=== PATIENT | male | born 1965 | race Caucasian/White ===

== ENCOUNTER 2020-02-21 00:57 | Outpatient (CLI) | payer OTHER, SELFPAY ==
[2020-02-21 19:00] LABS: SARS-CoV-2 RNA PCR Negative
== END 2020-02-21 00:58 | disposition home or self-care (01) ==
LOC: ANHCOVIDDT 00:57
PROVIDERS: PCP Family Medicine; Visit Provider Internal Medicine Gastroenterology
DX: Z01.812 Encounter for preprocedural laboratory examination (principal); Z11.59 Encounter for screening for other viral diseases
CPT/HCPCS: 87635; C9803; U0003

== ENCOUNTER 2020-02-23 00:55 | Day surgery (SDC) | payer OTHER, SELFPAY ==
[2020-02-16 11:45] VITALS: BMI 32.2
[2020-02-23 11:19] VITALS: BP 164/104; PULSE 78; RESP 16; TEMP 36.7; O2SAT 97; BMI 33.0
[2020-02-23] MEDS: LACTATED RINGERS 1,000 ML 150 ML IV CONT (11:23)
--- NOTE | 2020-02-23 11:39 | WPDANESEPPF ---
Anes - Initial Pre Proc Eval Procedure: Operation Date: 02/23/20 12:15 Proposed Procedures p Screening Colonoscopy - Soren Drummond MD Date/Time: 02/23/20 11:39 Surgeon: Soren Drummond MD Pre Op Diagnosis: Neoplasm Screening Patient Data Age: 55 Gender: M Height: 5 ft 10 in Weight: 104.3 kg Last Vital Signs Temp 36.7 C 02/23/20 11:19 Pulse 78 02/23/20 11:19 Resp 16 02/23/20 11:19 BP 164/104 H 02/23/20 11:19 Pulse Ox 97 02/23/20 11:19 Allergies Allergy/AdvReac Type Severity Reaction Status Date / Time No Known Allergies Allergy Mild Verified 02/23/20 11:08 Home Medications Medication Instructions Recorded Confirmed Type bupropion HCl 150 mg 24 hr tablet, 150 mg PO QAM #90 tablet 07/20/19 02/16/20 Rx extended release diclofenac sodium 75 mg 75 mg PO BID #180 tablet 08/07/19 02/16/20 Rx tablet,delayed release fluticasone propionate 50 2 spray NASAL DAILY #19.8 ml 01/10/20 02/16/20 Rx mcg/actuation nasal spray,suspension albuterol sulfate 90 mcg/actuation 2 puff INHALATION Q4H 90 Days 02/12/20 02/16/20 Rx aerosol inhaler #25.5 gm escitalopram oxalate 5 mg tablet 5 mg PO DAILY #90 tablet 02/14/20 02/16/20 Rx carbamazepine 200 mg PO Q12H PRN 02/16/20 02/16/20 History Patient hx anesthesia problems: none Family hx anesthesia problems: none PMFSH Family History Family History Mother Patient's mother is , Onset Age: 62 Father Family history of elevated blood lipids, Onset Age: 68 Family history of cardiovascular disease, Onset Age: 68 Cerebrovascular accident, Onset Age: 68 Family history of coronary artery disease, Onset Age: 68 Family history of congestive heart failure, Onset Age: 68 Grandparent Acute myocardial infarction, Onset Age: 40 Social History Social History Smoking status: Current every day smoker Alcohol intake: current Anes - Eval Final PreProcedure Day of Procedure 02/23/20 11:39 Patient weight: obese Heart: regular rate and rhythm Lungs: clear to auscultation Airway: Mallampati scale class II Neurological: alert and oriented Last oral intake: >/= 8 hours ASA classification: III Emergent: no Anesthetic plan: proceed Anesthesia type and monitoring: general GIVS and standard monitoring Informed Consent: The patient's anesthetic plan and its attendant risks and benefits were discussed with the patient/family/POA. Questions were solicited and answers provided to the satisfaction of the patient/family/POA.
--- NOTE | 2020-02-23 12:20 | PM.HPGS ---
History of Present Illness History of Present Illness Consent: Risks, benefits, and alternatives have been discussed and questions answered. Patient agrees to proceed with procedure. Chief complaint: Neoplasm Screening Narrative: Stanley Nicholson is a 55 year old male here for first screening colonoscopy Review of Systems Constitutional: Constitutional: Denies headache(s) and Denies weakness Eyes: Eyes: Denies blurry vision ENT: Reports Normal hearing present, Denies headache(s) and Denies neck pain Cardiovascular: Cardiovascular: Denies chest pain and Denies dyspnea Respiratory: Respiratory: Denies dyspnea Gastrointestinal: Gastrointestinal: Reports no additional gastrointestinal complaints Genitourinary: Genitourinary: Denies dysuria Musculoskeletal: Musculoskeletal: Denies neck pain Integumentary/Breasts: Skin/Breast: Denies dry skin Neurologic: Reports Normal hearing present, Denies headache(s) and Denies weakness Psychiatric: Psychiatric: Denies anxiety Endocrine: Endocrine: Denies change in body appearance Hematologic/Lymphatic: Hematologic/Lymphatic: Denies easy bleeding Allergic/Immunologic: Allergic/Immunologic: Denies urticaria PMFSH Family History Family History Mother Patient's mother is , Onset Age: 62 Father Family history of elevated blood lipids, Onset Age: 68 Family history of cardiovascular disease, Onset Age: 68 Cerebrovascular accident, Onset Age: 68 Family history of coronary artery disease, Onset Age: 68 Family history of congestive heart failure, Onset Age: 68 Grandparent Acute myocardial infarction, Onset Age: 40 Social History Social History Smoking status: Current every day smoker Alcohol intake: current Meds Home Medications and Allergies Home Medications Medication Instructions Recorded Confirmed Type bupropion HCl 150 mg 24 hr tablet, 150 mg PO QAM #90 tablet 07/20/19 02/16/20 Rx extended release diclofenac sodium 75 mg 75 mg PO BID #180 tablet 08/07/19 02/16/20 Rx tablet,delayed release fluticasone propionate 50 2 spray NASAL DAILY #19.8 ml 01/10/20 02/16/20 Rx mcg/actuation nasal spray,suspension albuterol sulfate 90 mcg/actuation 2 puff INHALATION Q4H 90 Days 02/12/20 02/16/20 Rx aerosol inhaler #25.5 gm escitalopram oxalate 5 mg tablet 5 mg PO DAILY #90 tablet 02/14/20 02/16/20 Rx carbamazepine 200 mg PO Q12H PRN 02/16/20 02/16/20 History Allergies Allergy/AdvReac Type Severity Reaction Status Date / Time No Known Allergies Allergy Mild Verified 02/23/20 11:08 Vital Signs Vital Signs - 24 hr 02/23/20 11:19 Temperature 98.1 F Pulse Rate 78 Respiratory Rate 16 Blood Pressure 164/104 H Pulse Oximetry 97 Exam Const: General: comfortable and no acute distress HENMT: General nose exam: Normal nares present Eyes: General: appearance normal, both eyes and all related structures Neck: Neck: no JVD Resp: Auscultation: clear to auscultation bilaterally Cardio: Rate: regular rate Rhythm: regular rhythm GI: Inspection: non-distended GI Palp: Yes Soft to palpation Skin: General skin exam: normal color Neuro: General: gait normal Speech: normal speech Extrem: General: normal to inspection Psych: Mental Status: mental status grossly normal Assessment and Plan Assessment and plan (1) Colon cancer screening: Code(s): Z12.11 - Encounter for screening for malignant neoplasm of colon Status: Acute Assessment and Plan: will proceed with colonoscopy (2) Anxiety disorder, unspecified: Code(s): F41.9 - Anxiety disorder, unspecified Status: Acute (3) Essential (primary) hypertension: Code(s): I10 - Essential (primary) hypertension Status: Acute
[2020-02-23 12:43] VITALS: BP 122/78; PULSE 76; RESP 16; O2SAT 94
[2020-02-23 12:53] VITALS: BP 119/78; PULSE 72; RESP 18; O2SAT 94
[2020-02-23 13:03] VITALS: BP 116/77; PULSE 64; RESP 18; O2SAT 95
== END 2020-02-23 13:14 | disposition home or self-care (01) ==
PROVIDERS: PCP Family Medicine; Visit Provider Internal Medicine Gastroenterology
PROC: 0DJD8ZZ Inspection of Lower Intestinal Tract, Via Natural or Artificial Opening Endoscopic (ICD-10-PCS; CPT 45378; principal; 2020-02-23 12:15)
DX: Z12.11 Encounter for screening for malignant neoplasm of colon (principal); K63.5 Polyp of colon; K57.30 Diverticulosis of large intestine without perforation or abscess without bleeding; K64.8 Other hemorrhoids; F17.200 Nicotine dependence, unspecified, uncomplicated; F41.9 Anxiety disorder, unspecified; I10 Essential (primary) hypertension; E66.9 Obesity, unspecified; Z68.33 Body mass index [BMI] 33.0-33.9, adult
CPT/HCPCS: 45380; 88305; J2001; J2704; J7120

== ENCOUNTER → 2021-05-02 04:42 | Outpatient (CLI) | payer OTHER, SELFPAY ==
[2021-05-02 18:26] LABS: SARS-CoV-2 RNA PCR Negative
== END ==
PROVIDERS: PCP Family Medicine; Visit Provider Physician Assistant
DX: R05 Cough (principal); R50.9 Fever, unspecified; Z20.822 Contact with and (suspected) exposure to COVID-19
CPT/HCPCS: C9803; U0003; U0005

== ENCOUNTER → 2021-05-07 12:54 | Outpatient (CLI) | payer OTHER, SELFPAY ==
--- NOTE | ~2021-05-07 | XR_ITS ---
XR cervical spine 4-5V DATE: 05/07/2021 13:28 INDICATION: Cervical radiculopathy TECHNIQUE: Standing AP, open-mouth, odontoid, lateral and swimmer views COMPARISON: None FINDINGS: C1 and C2 are normally aligned and the odontoid process is intact. There is straightening of the cervical spine. There is 2 mm anterolisthesis at C4-5. No fracture or dislocation or locked facet is evident. No prev ertebral soft tissue swelling. There is mild to moderate degenerative disc disease at C3-4 and C4-5. There is severe degenerative disc disease at C5-6 and C6-7. There is uncovertebral joint spurring at C5-6 and C6-7, more prominent on the right. IMPRESSION: Straightening Multilevel degenerative disc disease, most pronounced at C5-6 and C6-7 2 mm anterolisthesis at C4-5 Uncovertebral joint spurring at C5-6 and C6-7 Reviewed, dictated and finalized at location B.
== END ==
PROVIDERS: PCP Family Medicine; Visit Provider Physician Assistant Medical
DX: M54.12 Radiculopathy, cervical region (principal); M50.322 Other cervical disc degeneration at C5-C6 level; M50.323 Other cervical disc degeneration at C6-C7 level
CPT/HCPCS: 72050

== ENCOUNTER → 2021-06-06 11:00 | Outpatient (CLI) | payer OTHER, SELFPAY ==
--- NOTE | ~2021-06-06 | MR_ITS ---
EXAMINATION: MR cervical spine wo con DATE: 06/06/2021 11:45 INDICATION: Cervical radiculopathy. TECHNIQUE: Magnetic resonance imaging (MRI) of the cervical spine was performed without intravenous c ontrast. Sequences included sagittal T2-weighted FSE, sagittal STIR FSE, sagittal T1-weighted FSE, ax ial MERGE, and axial T2-weighted FSE. COMPARISON: Cervical spine radiographs 05/07/2021 FINDINGS: There is 2 mm retrolisthesis of C5 and C6 and C6 on C7. There is kyphosis of cervical spine . Vertebral body heights are normal. There is mildly decreased disc height at C4-C5, moderately decre ased disc height at C5-C6, and severely decreased disc height at C6-C7. The spinal cord signal intens ity is normal. The following disc levels are specifically discussed: C2-C3: The disc does not extend beyond the endplate margin. There is no uncovertebral joint osteoarth ritis. There is severe bilateral facet joint osteoarthritis. There is mild bilateral neural foraminal stenosis. There is no central canal stenosis. C3-C4: The disc is bulging. There is moderate bilateral uncovertebral joint osteoarthritis. There is severe bilateral facet joint osteoarthritis. There is moderate right and severe left neural foraminal stenosis. There is mild central canal stenosis. C4-C5: The disc is bulging. There is moderate right and mild left uncovertebral joint osteoarthritis. There is severe right and moderate left facet joint osteoarthritis. There is severe right neural for aminal stenosis. There is mild central canal stenosis with ventral indentation of the spinal cord. C5-C6: The disc is bulging. There is severe bilateral uncovertebral joint osteoarthritis. There is mo derate bilateral facet joint osteoarthritis. There is severe bilateral neural foraminal stenosis. The re is mild central canal stenosis with ventral indentation of the spinal cord. C6-C7: The disc is bulging. There is severe bilateral uncovertebral joint osteoarthritis. There is mi ld bilateral facet joint osteoarthritis. There is moderate right and mild left neural foraminal steno sis. There is mild central canal stenosis. C7-T1: The disc does not extend beyond the endplate margin. There is no uncovertebral joint osteoarth ritis. There is severe bilateral facet joint osteoarthritis. There is mild bilateral neural foraminal stenosis. There is no central canal stenosis. IMPRESSION: 1. Severe cervical spondylosis. Reviewed, dictated and finalized at location A.
== END ==
PROVIDERS: PCP Family Medicine; Visit Provider Nurse Practitioner Adult Health
DX: M47.22 Other spondylosis with radiculopathy, cervical region (principal)
CPT/HCPCS: 72141

== ENCOUNTER 2023-02-10 09:52 | Outpatient (CLI) | payer BC, SELFPAY ==
[2023-02-10 12:54] LABS: Kit Draw Collected
== END 2023-02-10 09:53 | disposition home or self-care (01) ==
LOC: ANHGOSHLAB 09:54
PROVIDERS: PCP Family Medicine; Visit Provider Nurse Practitioner Family
DX: E29.1 Testicular hypofunction (principal); E66.9 Obesity, unspecified; I10 Essential (primary) hypertension; R53.83 Other fatigue; Z12.5 Encounter for screening for malignant neoplasm of prostate
CPT/HCPCS: 36415

== ENCOUNTER → 2023-02-10 10:29 | Outpatient (CLI) | payer BC, SELFPAY ==
--- NOTE | ~2023-02-10 | XR_ITS ---
EXAMINATION: XR hip BI 2V w AP pelvis DATE: 02/10/2023 10:42 INDICATION: Bilateral hip pain. TECHNIQUE: An anteroposterior view of the pelvis and 2 views of each hip were obtained. COMPARISON: None. FINDINGS: Bone alignment is normal. No fracture. There is mild osteoarthritis of the hips. There is m oderate lumbar spondylosis. IMPRESSION: 1. Mild osteoarthritis of the hips. Reviewed, dictated and finalized at location A.
== END ==
PROVIDERS: PCP Family Medicine; Visit Provider Nurse Practitioner Family
DX: M16.0 Bilateral primary osteoarthritis of hip (principal)
CPT/HCPCS: 73521

== ENCOUNTER 2024-04-25 08:47 | Outpatient (CLI) | payer OTHER, SELFPAY ==
[2024-04-25 13:56] LABS: Basophils Absolute Auto 0.1 K/mm3 (0.0-0.1); Basophils Percent Auto 0.8 % (0.2-1.2); Eosinophils Absolute Auto 0.2 K/mm3 (0-0.3); Eosinophils Percent Auto 2.9 % (0-4.4); Hematocrit 47.9 % (42.0-52.0); Hemoglobin 15.7 g/dL (14.0-18.0); Immature Granulocyte Absolute 0.02 K/mm3 (0.00-0.031); Immature Granulocyte Percent A 0.3 % (0-0.5); Lymphocytes Absolute Auto 2.04 K/mm3 (0.9-3.2); Lymphocytes Percent Auto 34.4 % (18.3-44.2); Mean Corpuscular HGB Conc 32.8 g/dl (32-36); Mean Corpuscular Hemoglobin 30.3 pg (26-34); Mean Corpuscular Volume 92.5 fl (80-100); Mean Platelet Volume 10.1 fl (7.4-10.4); Monocytes Absolute Auto 0.6 K/mm3 (0.1-0.6); Monocytes Percent Auto 9.9 % (2.6-8.5); Neutrophils Absolute Auto 3.1 K/mm3 (1.3-6.7); Neutrophils Percent Auto 51.7 % (45.5-73.1); Platelet Count Result 326 k/mm3 (150-375); Red Blood Count 5.18 M/mm3 (4.6-6.20); Red Cell Distribution Width 13.2 % (11.5-14.5); White Blood Count 5.9 K/mm3 (4.5-10.0)
[2024-04-25 14:27] LABS: Alanine Aminotransferase 26 U/L (6-50); Albumin Level 4.5 g/dL (3.5-5.1); Alkaline Phosphatase 67 U/L (38-126); Anion Gap 9 mmol/L (4-12); Aspartate Amino Transferase 62 U/L (17-59); Bilirubin,Total 0.5 mg/dL (0.2-1.3); Blood Urea Nitrogen 14 mg/dL (9-20); Calcium 9.1 mg/dL (8.4-10.2); Carbon Dioxide 31 mmol/L (22-30); Chloride 98 mmol/L (98-107); Cholesterol 216 mg/dL (0-200); Estimated Glomerular Filt Rate > 60; Glucose 77 mg/dL (65-110); HDL Direct 44 mg/dL; Potassium 4.1 mmol/L (3.4-5.0); Sodium 138 mmol/L (137-145); Triglycerides 168 mg/dL (<150)
[2024-04-25 14:46] LABS: LDL Cholesterol Direct 127 mg/dL
[2024-04-25 14:52] LABS: Prostate Specific Antigen 0.7 ng/mL (< OR = 4.0)
[2024-04-25 15:31] LABS: Iron 103 ug/dL (49-181)
[2024-04-25 15:40] LABS: Percent Iron Saturation 33 % (20-50)
[2024-04-28 03:29] LABS: Testosterone Total 375 ng/dL (250-1100)
== END 2024-04-25 08:48 | disposition home or self-care (01) ==
LOC: ANHGOSHLAB 08:48
PROVIDERS: PCP Family Medicine; Visit Provider Nurse Practitioner Family
DX: E05.90 Thyrotoxicosis, unspecified without thyrotoxic crisis or storm (principal); E29.1 Testicular hypofunction; I10 Essential (primary) hypertension; R53.83 Other fatigue; Z12.5 Encounter for screening for malignant neoplasm of prostate; Z51.81 Encounter for therapeutic drug level monitoring; Z79.890 Hormone replacement therapy
CPT/HCPCS: 36415; 80053; 80061; 82728; 83540; 83550; 84153; 84403; 84443; 85025; G0103

== ENCOUNTER 2024-05-16 08:04 | Outpatient (CLI) | payer OTHER, SELFPAY ==
--- NOTE | ~2024-05-16 | NM_ITS ---
EXAMINATION: NM stress w perf spect multi DATE: 05/16/2024 09:47 INDICATION: Chest pain. TECHNIQUE: Rest images were obtained following intravenous administration of 10.1 mCi Tc99m tetrofosm in (Myoview). The patient performed an exercise activity. At peak exercise, 31.2 mCi Tc99m tetrofosmi n (Myoview) was administered intravenously, and stress images were obtained. Data was reconstructed i nto short axis and horizontal and vertical long axis SPECT images. Gated SPECT images were also obtai jes. COMPARISON: None. FINDINGS: There is no definite reversible or fixed perfusion abnormality to suggest ischemia or infar ction. There is no segmental wall motion abnormality. Left ventricular ejection fraction measures 6 3%. IMPRESSION: 1. No definite ischemia or infarct. 2. Normal left ventricular ejection fraction measuring 63%. Reviewed, dictated and finalized at location A.
--- NOTE | 2024-05-16 08:13 | EST_ITS ---
Patient Info Name: Stanley Nicholson Age: 59 years : 1965 Gender: Male Ht: 69 in Wt: 210 lbs BSA: 2.18 m2 HR: 64 bpm BP: 136 / 87 mmHg Exam Date: 05/16/2024 8:53 AM Exam Location: [facility] Patient Status: Outpatient Admit Date: 05/16/2024 Staff Ordering Physician: Loli Blunt Attending Provider: Loli Blunt Exercise Technologist: Sammie Badillo CT Exercise Physician: Stephen iRtchie DO Exam Type: CA stress test treadmill w NM Study Info A nuclear stress test was performed. A nuclear stress test was performed. Summary 1. 1. Negative Zach exercise stress test for ischemic ST changes by ECG criteria. 2. 2. Good functional capacity, achieving 10 METs of workload. 3. 3. Appropriate HR response to exercise. 4. 4. Appropriate HR recovery at 1 minute post exercise. 5. 5. Nuclear scan to follow and will be reported separately. Please correlate with it. 6. 6. Patient informed of the above results. Protocol: Zach Stress ECG Details Stage: REST Duration (min): 6 min : 39 sec Speed (mph): 0.0 Grade (%): 0 HR (bpm): 79 SBP (mmHg): 136 DBP (mmHg): 87 METS: --- Stage: REST Duration (min): 7 min : 22 sec Speed (mph): 0.0 Grade (%): 0 HR (bpm): 72 SBP (mmHg): 136 DBP (mmHg): 87 METS: --- Stage: STAGE 1 Duration (min): 1 min : 0 sec Speed (mph): 1.7 Grade (%): 10 HR (bpm): 95 SBP (mmHg): 136 DBP (mmHg): 87 METS: --- Stage: STAGE 1 Duration (min): 2 min : 0 sec Speed (mph): 1.7 Grade (%): 10 HR (bpm): 104 SBP (mmHg): 136 DBP (mmHg): 87 METS: --- Stage: STAGE 1 Duration (min): 3 min : 0 sec Speed (mph): 1.7 Grade (%): 10 HR (bpm): 107 SBP (mmHg): 159 DBP (mmHg): 80 METS: --- Stage: STAGE 2 Duration (min): 1 min : 0 sec Speed (mph): 2.5 Grade (%): 12 HR (bpm): 114 SBP (mmHg): 159 DBP (mmHg): 80 METS: --- Stage: STAGE 2 Duration (min): 2 min : 0 sec Speed (mph): 2.5 Grade (%): 12 HR (bpm): 125 SBP (mmHg): 149 DBP (mmHg): 77 METS: --- Stage: STAGE 2 Duration (min): 3 min : 0 sec Speed (mph): 2.5 Grade (%): 12 HR (bpm): 127 SBP (mmHg): 149 DBP (mmHg): 77 METS: --- Stage: STAGE 3 Duration (min): 1 min : 0 sec Speed (mph): 3.4 Grade (%): 14 HR (bpm): 140 SBP (mmHg): 184 DBP (mmHg): 84 METS: --- Stage: STAGE 3 Duration (min): 1 min : 45 sec Speed (mph): 3.4 Grade (%): 14 HR (bpm): 149 SBP (mmHg): 184 DBP (mmHg): 84 METS: --- Stage: RECOVERY Duration (min): 0 min : 14 sec Speed (mph): 0.0 Grade (%): 0 HR (bpm): 149 SBP (mmHg): 184 DBP (mmHg): 84 METS: --- Stage: RECOVERY Duration (min): 1 min : 14 sec Speed (mph): 0.0 Grade (%): 0 HR (bpm): 121 SBP (mmHg): 184 DBP (mmHg): 84 METS: --- Stage: RECOVERY Duration (min): 2 min : 14 sec Speed (mph): 0.0 Grade (%): 0 HR (bpm): 108 SBP (mmHg): 184 DBP (
== END 2024-05-16 08:05 | disposition home or self-care (01) ==
PROVIDERS: PCP Family Medicine; Visit Provider Nurse Practitioner Family
DX: R06.02 Shortness of breath (principal); R07.9 Chest pain, unspecified
CPT/HCPCS: 78452; 93017; A9502

== ENCOUNTER 2024-08-15 09:55 | Outpatient (CLI) | payer BC, SELFPAY ==
--- NOTE | ~2024-08-15 | CT_ITS ---
EXAMINATION: CT sinus wo con DATE: 08/15/2024 10:08 INDICATION: Chronic maxillary sinusitis TECHNIQUE: Computed tomography (CT) of the paranasal sinuses was performed without intravenous contra st. The dose-length product was 387.90 mGy-cm. Automated exposure control and iterative reconstructio n technique were employed. COMPARISON: None FINDINGS: There is mucosal thickening of the maxillary, sphenoid, ethmoid and frontal sinuses. No air -fluid levels. Rightward nasal septal deviation. There is soft tissue occlusion of the ostiomeatal un its. No significant mucoperiosteal reaction. Mastoids are pneumatized. IMPRESSION: 1. Moderate pansinusitis. Reviewed, dictated and finalized at location B. FIELD IMPRESSION: 1. Moderate pansinusitis.
== END 2024-08-15 09:56 | disposition home or self-care (01) ==
LOC: GOSHIMG 09:55
PROVIDERS: PCP Family Medicine; Visit Provider Family Medicine
DX: J32.4 Chronic pansinusitis (principal)
CPT/HCPCS: 70486

== ENCOUNTER 2024-12-27 08:15 | Outpatient (CLI) | payer BC, SELFPAY ==
--- NOTE | ~2024-12-27 | MR_ITS ---
MRI of the cervical spine Clinical History: Radiculopathy Technique: Axial T2-weighted and gradient images, and sagittal T1-weighted, T2-weighted, and STIR héctor ges were acquired. COMPARISON: 06/06/2021 Findings: No acute fracture seen. There is straightening of the normal cervical lordosis. No bone mar row signal abnormality seen. At C2-C3, there is no disc bulge or herniation. There is mild right neural foraminal narrowing with r ight facet arthropathy. No definite left neural foraminal narrowing. No canal stenosis or cord compre ssion. At C3-C4, there is mild disc osteophyte complex with right facet arthropathy greater than left. There is bilateral neural foraminal narrowing, right worse than left. There is no canal stenosis or cord c ompression. At C4-C5, there is mild disc osteophyte complex and bilateral facet arthropathy, right worse than lef t. There is right neural foraminal narrowing. No left neural foraminal narrowing. No canal stenosis o r cord compression. At C5-C6, there is moderate degenerative disc narrowing with diffuse disc osteophyte complex. There i s severe bilateral neural foraminal narrowing. No canal stenosis or cord compression. At C6-C7, there is moderate degenerative disc narrowing with diffuse disc osteophyte complex. There i s severe right neural foraminal narrowing and possible minimal left neural foraminal narrowing. No ca nal stenosis or cord compression. No abnormal signal seen in the spinal cord. Paravertebral soft tissues are unremarkable. Impression: Moderate degenerative spondylosis, with multilevel neural foraminal narrowing, as detailed above. Reviewed, dictated and finalized at [facility]. Impression: Moderate degenerative spondylosis, with multilevel neural foraminal narrowing, as detailed above.
== END 2024-12-27 08:16 | disposition home or self-care (01) ==
LOC: GOSHIMG 08:16
PROVIDERS: PCP Family Medicine; Visit Provider Nurse Practitioner Family
DX: M47.22 Other spondylosis with radiculopathy, cervical region (principal)
CPT/HCPCS: 72141

== ENCOUNTER 2025-05-10 11:48 | Outpatient (CLI) | payer BC, SELFPAY ==
--- NOTE | ~2025-05-10 | XR_ITS ---
EXAMINATION: [id number]_[id number]_CR, 05/10/2025 12:05 CDT HISTORY: right and left knee pain COMPARISON: No comparisons available. Findings: No acute fracture or malalignment. No significant degenerative changes. Soft tissues unremarkable. Impression: No acute fracture or malalignment. Reviewed, dictated and finalized at location P. Impression: No acute fracture or malalignment.
--- NOTE | ~2025-05-10 | XR_ITS ---
EXAMINATION: [id number]_[id number], 05/10/2025 12:05 CDT HISTORY: right and left knee pain COMPARISON: No comparisons available. Findings: No acute fracture or malalignment. No significant degenerative changes. Soft tissues unremarkable. Impression: No acute fracture or malalignment. Reviewed, dictated and finalized at location P. Impression: No acute fracture or malalignment.
== END 2025-05-10 11:49 | disposition home or self-care (01) ==
LOC: MICIMG 11:50
PROVIDERS: PCP Nurse Practitioner Family; Visit Provider Nurse Practitioner Family
DX: M25.561 Pain in right knee (principal); M25.562 Pain in left knee
CPT/HCPCS: 73560